=== PATIENT | female | born 1980 ===

== ENCOUNTER → 2017-10-31 | Day surgery (SDC) | payer OTHER ==
[~2017-10-31] VITALS: Ht 165.1 cm; Wt 72.6 kg
--- NOTE | 2017-11-05 19:47 | Operative Report ---
Operative/Inv Procedure Report Surgery Date: 10/31/17 Name of Procedure: Tolbert cerclage Pre-Operative Diagnosis: Incompetent cervix Post-Operative Diagnosis: Same Estimated Blood Loss: scant Surgeon/Truck Service Manager: Fermín Ortiz MD Anesthesia: moderate sedation, spinal Operative/Procedure Note Note: Patient was brought to the operating room and placed on the OR table in the sitting position where she underwent spinal anesthetic without complication. She was repositioned into dorsal supine. Venodyne boots were placed. After sedation was accomplished she was repositioned in modified dorsal lithotomy. She was prepped and draped in usual sterile fashion. Examination under anesthesia revealed the 50% effaced cervix which was fingertip open. A weighted speculum was inserted into the vagina. A Roslyn retractor and Allis clamps placed at the 12 o'clock position on the cervix. A cerclage was placed from the 12 to the 10:00 area and then through the 8-664 and then finally to 12 with this was tied off. The ends of the Mersilene stitch were fastened with the 2-0 silk suture. Silk suture was also placed in the left upper quadrant or elevation for cerclage removal. At the end of the procedure hemostasis was good the patient was awakened and sent to recovery in good condition. All needle, sponge, and instrument counts were correct at the end of the procedure 2.
== END ==
LOC: STS 10-29 07:00
DX: O34.32 Maternal care for cervical incompetence, second trimester (principal); Z85.858 Personal history of malignant neoplasm of other endocrine glands
CPT/HCPCS: J0690; J1100; J2250; J2405

== ENCOUNTER 2018-04-07 07:44 | Inpatient (IN) | payer OTHER ==
[~2018-04-07] VITALS: Ht 165.1 cm; Wt 84.4 kg
[2018-04-07] MEDS ORDERED: PRENATAL TABLE1 EAC2 PO (08:41)
[2018-04-07] MEDS ORDERED: ASPIRIN EC81 M1 PO (08:42)
[2018-04-07 08:53] LABS: ABSOLUTE BASOPHIL COUNT 0 /CUMM (0.0-0.2); ABSOLUTE EOSINOPHIL COUNT 0.1 /CUMM (0.0-0.7); ABSOLUTE GRANULOCYTE CT 7.4 /CUMM (1.4-6.5); ABSOLUTE LYMPH COUNT 1.8 /CUMM (1.2-3.4); ABSOLUTE MONOCYTE COUNT 0.6 /CUMM (0.10-0.60); BASOPHIL % 0.3 % (0.0-2.0); EOSINOPHIL % 1.1 % (0-5); GRANULOCYTE % 74.6 % (42.2-75.2); HEMATOCRIT 35.7 % (37-47); MEAN CORPUSCULAR HGB 33.5 PG (27.0-31.0); MEAN CORPUSCULAR HGB CONC 34.7 G/DL (33.0-37.0); MEAN CORPUSCULAR VOLUME 96.4 FL (81.0-99.0); MEAN PLATELET VOLUME 10.6 FL (7.4-10.4); PLATELET COUNT 166 /CUMM (130-400); RBC DISTRIBUTION WIDTH 13.6 % (11.5-14.5); RED BLOOD CELL CT 3.71 /CUMM (4.20-5.40)
--- NOTE | 2018-04-07 16:20 | History & Physical ---
General Information and HPI MD Statement: I have seen and personally examined MILDRED GOEL and documented this H&P. The patient is a 38 year old female at [38] weeks and [6] days gestation who presented with a chief complaint of [SROM]. History of Present Illness: 38yo EDC 04/15/18 by early u/s admitted for SROM at 5:30 am clear fluid. GBS negative. care significant for h/o PTD 20 weeks; 14 week cerclage, 17- OHP weekly injections and weekly contraction monitoring. 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 EENTM: Reports: no symptoms. Cardiovascular: Reports: no symptoms. Respiratory: Reports: no symptoms. GI: Reports: no symptoms. Genitourinary: Reports: see HPI. Musculoskeletal: Reports: no symptoms. Skin: Reports: no symptoms. Neurological/Psychological: Reports: no symptoms. Hematologic/Endocrine: Reports: no symptoms. Immunologic/Allergic: Reports: no symptoms. All Other Systems: Reviewed and Negative Exam & Diagnostic Data Last 24 Hrs of Vital Signs/I&O Intake & Output 06/ 1600 06/04 0800 06/04 0000 Intake Total Output Total Balance Patient 186 lb Weight Obstetric Exam Wgt Gained During : 30 Pelvimetry: gynecoid Dilation (cm): 3 Effacement (%): 100 Station: -2 Membranes: SROM Fluid: clear Fundal Height (cm): 40 Multiple Gestation? No Contractions: occ Patient for Induction? Yes Vizcarra Score Vizcarra Score Response Value Cervix Position: posterior 0 Cervix Consistency: soft 2 Cervix Effacement: >80% 3 Cervix Dilation: 3-4 cm 2 Cervix Station: -2 1 Total 8 Physical Exam: HEENT: NCAT Chest: CTA CV: nl S1S2 Abd: gravid, cephalic, efw 7 Ext: no c/c/e Neuro: nonfocal Labs Blood Type & Rh: A pos Antibody Screen: neg Hct/Hgb & Platelets #1: Hct/Hgb & Platelets #2: Rubella: imm VDRL #1: nr VDRL #2: nr HbsAg: neg HIV #1: neg HIV #2 neg 1 Hr P Group B Strep: neg Initial Ultrasound: wnl Anatomy Ultrasound: wnl Ultrasound for EFW: 6 Genetic Testing: wnl Last 24 Hrs of Labs/Janes: Laboratory Tests 04/07/18 1100: Urine Color YEL, Urine Clarity CLEAR, Urine pH 6.0, Ur Specific [place] 1.025, Urine Protein TRACE H, Urine Ketones NEG, Urine Nitrite NEG, Urine Bilirubin NEG, Urine Urobilinogen 0.2, Ur Leukocyte Esterase NEG, Ur Microscopic SEDIMENT EXAMINED, Urine RBC 25-50 H, Urine WBC RARE, Ur Epithelial Cells OCCAS, Urine Mucus FEW, Urine Hemoglobin MOD H, Urine Glucose NEG 04/07/18 0836: CBC w Diff NO MAN DIFF REQ, RBC 3.71 L, MCV 96.4, MCH 33.5 H, MCHC 34.7, RDW 13.6, MPV 10.6 H, Gran % 74.6, Lymphocytes % 18.4 L, Monocytes % 5.6, Eosinophils % 1.1, Basophils % 0.3, Absolute Granulocytes 7.4 H, Absolute Lymphocytes 1.8, Absolute Monocytes 0.6, Absolute Eosinophils 0.1, Absolute Basophils 0 04/07/18 0758: Membrane Rupture POSITIVE Microbiology 04/07 1100 URINE ROUT: Urine Culture - RECD ITS Data ITS Data Unobtainable at this time Assessment/Plan Assessment/Plan: SROM at term expectant mgmt As Ranked By This Provider Problem List: 1. Core Measures Venous Thromboembolism VTE Risk Factors / No Mechanical VTE Prophylaxis d/t Early Ambulation No VTE Pharm Prophylaxis d/t Bleeding (Active)
--- NOTE | 2018-04-07 19:24 | Labor & Delivery Summary ---
Delivery Summary Vaginal Delivery: Vaginal: VACUUM ASSISTED Episiotomy/Lacerations: Episiotomy/Lacerations: LACERATION Type: BILATERAL SULCUS Repair: FIGURE OF 8 Anesthesia: EPI Placenta: Placenta: spontanteous, normal, 3 vessel Anesthesia: block Baby's Weight: 7/4 Apgars - 1 Min: 7 Apgars - 5 Min: 9 Additional Comments: VACUUM ASSISTED DELIVERY FOR DECELS WHILE PUSHING
[2018-04-08 08:08] LABS: ABSOLUTE BASOPHIL COUNT 0 /CUMM (0.0-0.2); ABSOLUTE EOSINOPHIL COUNT 0.1 /CUMM (0.0-0.7); ABSOLUTE LYMPH COUNT 1.8 /CUMM (1.2-3.4); ABSOLUTE MONOCYTE COUNT 0.6 /CUMM (0.10-0.60); BASOPHIL % 0.2 % (0.0-2.0); EOSINOPHIL % 1.2 % (0-5); GRANULOCYTE % 77.6 % (42.2-75.2); HEMATOCRIT 31.2 % (37-47); MEAN CORPUSCULAR HGB 33.8 PG (27.0-31.0); MEAN CORPUSCULAR HGB CONC 34.8 G/DL (33.0-37.0); MEAN CORPUSCULAR VOLUME 97.1 FL (81.0-99.0); MEAN PLATELET VOLUME 11.1 FL (7.4-10.4); PLATELET COUNT 145 /CUMM (130-400); RBC DISTRIBUTION WIDTH 14.2 % (11.5-14.5); RED BLOOD CELL CT 3.21 /CUMM (4.20-5.40); WHITE BLOOD CELL COUNT 11.6 /CUMM (4.8-10.8)
[2018-04-09] MEDS ORDERED: TYLENOL325 M1 PO (10:16)
[2018-04-09] MEDS ORDERED: DOCUSATE SODIU100 M3 PO (10:16)
== END 2018-04-09 12:11 | DRG 775 ==
LOC: CBCO 07:44 → GNO 08:15
PROVIDERS: Obstetrics & Gynecology
PROC: 10D07Z6 Extraction of Products of Conception, Vacuum, Via Natural or Artificial Opening (ICD-10-PCS; principal; 2018-04-07)
PROC: 0HQ9XZZ Repair Perineum Skin, External Approach (ICD-10-PCS; principal; 2018-04-07)
DX: O70.9 Perineal laceration during delivery, unspecified (principal); O76 Abnormality in fetal heart rate and rhythm complicating labor and delivery; Z3A.38 38 weeks gestation of pregnancy; Z37.0 Single live birth; Z88.6 Allergy status to analgesic agent
CPT/HCPCS: GNOS; 81001; 84112; 87086; J7120